=== PATIENT | female | born 1990 | race African-American/Black ===

== ENCOUNTER 2016-09-02 08:05 | Emergency (ER) | payer OTHER ==
[~2016-09-02] VITALS: Ht 154.9 cm; Wt 63.6 kg
[~2016-09-02 08:05] MED LIST: BACLOFEN10 MG PO; CLOPIDOGREL75 MG PO; FIORICET,ESG1 TABLET PO; GABAPENTIN300 MG PO; LIDOCAINE20 MG/1 M5 PO; LOPRESSOR50 MG PO; LYRICA100 MG PO; MOBIC15 MG PO; NAPROSYN500 MG PO; NAPROXEN500 MG PO; OPANA ER5 MG PO; OXYCODONE HCL5 MG PO; OXYCODONE-APAP1 EACH PO; PEN-VEE K,VEET500 MG PO; PERCOCET 5/31 TABLET PO; PREDNISONE20 MG PO; ZANAFLEX2 M1 PO
[2016-09-02] MEDS ORDERED: BACLOFEN10 MG PO (10:35)
[2016-09-02 10:48] VITALS: BP 106/60
== END 2016-09-02 10:49 | disposition home or self-care (01) ==
LOC: EME 08:05
DX: G62.9 Polyneuropathy, unspecified (principal); G89.29 Other chronic pain; F17.200 Nicotine dependence, unspecified, uncomplicated; Z71.6 Tobacco abuse counseling
CPT/HCPCS: 99281; 99283; J1100; J2270; J3010

== ENCOUNTER 2016-09-19 13:49 | Emergency (ER) | payer OTHER ==
[~2016-09-19] VITALS: Ht 154.9 cm; Wt 66.2 kg
[2016-09-19 14:20] VITALS: BP 129/77
== END 2016-09-19 14:24 | disposition home or self-care (01) ==
LOC: RME 13:49 → EME 13:49 → RME 14:24
DX: M62.838 Other muscle spasm (principal); M79.671 Pain in right foot; G89.29 Other chronic pain
CPT/HCPCS: 99281; 99284